=== PATIENT | female | born 1965 | race Caucasian/White ===

== ENCOUNTER → 2017-01-08 15:22 | Outpatient (CLI) | payer MEDICAID | END | disposition home or self-care (01) | LOC: D.CT 15:22 | DX: J32.9 Chronic sinusitis, unspecified (principal) ==

== ENCOUNTER 2017-04-13 09:42 | Emergency (ER) | payer OTHER | END 2017-04-13 11:15 | disposition home or self-care (01) | LOC: D.ER 09:42 | DX: S52.502A Unspecified fracture of the lower end of left radius, initial encounter for closed fracture (principal); W19.XXXA Unspecified fall, initial encounter; Y93.89 Activity, other specified; Y92.89 Other specified places as the place of occurrence of the external cause ==